=== PATIENT | male | born 1975 | race Caucasian/White ===

== ENCOUNTER 2018-09-03 16:43 | Observation (INO) | payer BC ==
[2018-09-03] MEDS ORDERED: SODIUM CHLORIDE 0.9% 1,000 ML IV STA (18:21)
[2018-09-03] MEDS ORDERED: ACETAMINOPHEN TAB 325 MG TAB PO STA (18:22)
[2018-09-03] MEDS ORDERED: IBUPROFEN 800 MG TAB PO STA (18:22)
--- NOTE | 2018-09-03 18:42 | ED ---
General Adult HPI - General Chief complaint: Abdominal Pain Stated complaint: Rash, all over body pain Time Seen by Provider: 09/03/18 18:07 Source: patient, RN notes reviewed, old records reviewed Mode of arrival: ambulatory Limitations: no limitations - History of Present Illness Initial comments: 42-year-old male patient past medical history cholecystectomy, fully vaccinated presents with multiple complaints. 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 Patient reports that afterwards she developed a red rash on his hands. Patient reports that he has also developed symptoms including bilateral flank pain, generalized myalgias. Patient also complains of a waxing and waning productive cough. Patient states that he has had nausea without emesis. Denies any diarrhea. Patient denies any chest pain, reports some shortness of breath with coughing but no shortness of breath at rest. Denies any headache, altered mental status, changes in vision. Denies any neck stiffness. Denies any dysuria. Patient does report that he was previously havi ng some mild ureteral discharge which resolved, patient was reportedly tested for sexually transmitted infections by his primary care provider she states was negative. Patient complains of fevers and chills. Systemic: Pt denies fatigue, fever/chills. Pt denies weakness, night sweats, weight loss. Neuro: Pt denies headache, visual disturbances, syncope or pre-syncope. HEENT: Pt denies ocular discharge or irritation, otalgia, rhinorrhea, pharyngitis or notable lymphadenopathy. Cardiopulmonary: Pt denies chest pain, SOB, heart palpitations, dyspnea on exertion. Abdominal/GI: Pt denies abdominal pain, n/v/d. : Pt denies dysuria, burning w/ urination, frequency/urgency. Denies new onset urinary or bowel incontinence. MSK: Pt denies myalgia, loss of strength or function in extremities. Neuro: Pt denies new onset weakness, paresthesias. - Related Data Allergies Allergy/AdvReac Type Severity Reaction Status Date / Time No Known Allergies Allergy Verified 09/03/18 17:22 Review of Systems ROS Statement: Those systems with pertinent positive or pertinent negative responses have been documented in the HPI. ROS Other: All systems not noted in ROS Statement are negative. Past Medical History Past Medical History: No Reported History History of Any Multi-Drug Resistant Organisms: None Reported Past Surgical History: Cholecystectomy Additional Past Surgical History / Comment(s): left leg surgery Past Psychological History: No Psychological Hx Reported Smoking Status: Current every day smoker Past Alcohol Use History: Occasional Past Drug Use History: None Reported General Exam - General Exam Comments Initial Comments: Constitutional: NAD, AOX3, Pt has pleasant affect. HEENT: NC/AT, trachea midline, neck supple, no lymphadenopathy. Posterior pharynx non erythematous, without exudates. External ears appear normal, without discharge. Mucous membranes moist. Eyes PERRLA, EOM intact. There is no scleral icterus. No pallor noted. Cardiopulmonary: RRR, no murmurs, rubs or gallops, no JVD noted. Lungs CTAB in anterior and posterior sun. No peripheral edema. Abdominal exam: Abdomen soft and non-distended. Abdomen mildly tender to palpation in periumbilical region. No other areas of significant abdominal tenderness. Bowel sounds active in LLQ. No hepatosplenomegaly. No ecchymosis Neuro: CN II-XII intact. No nuchal rigidity. No raccon eyes, no murphy sign, no hemotympanum. No cervical spinal tenderness. MSK: No posterior calf tenderness bilaterally, homans sign negative bilaterally. Posterior tibialis and radial pulse +2 bilaterally. Sensation intact in upper and lower extremities. Full active ROM in upper and lower extremities, 5/5 st regnth. Derm: Maculopapular erythematous rash on palms bilaterally which extents into volar aspect of wrist bilaterally. Limitations: no limitations Course Vital Signs 09/03/18 09/03/18 17:18 19:56 Temperature 102.3 F H 100.0 F H Pulse Rate 106 H 82 Respiratory 18 16 Rate Blood Pressure 125/79 121/62 O2 Sat by Pulse 97 100 Oximetry Medical Decision Making - Medical Decision Making 42-year-old male patient past medical history cholecystectomy, fully vaccinated presents with multiple complaints. 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 Patient reports that afterwards she developed a red rash on his hands. Patient reports that he has also developed symptoms including bilateral flank pain, generalized myalgias. Patient also complains of a waxing and waning productive cough. Patient states that he has had nausea without emesis. Denies any diarrhea. Patient denies any chest pain, reports some shortness of breath with coughing but no shortness of breath at rest. Denies any headache, altered mental status, changes in vision. Denies any neck stiffness. Denies any dysuria. Patient does report that he was previously hav ing some mild ureteral discharge which resolved, patient was reportedly tested for sexually transmitted infections by his primary care provider she states was negative. Patient complains of fevers and chills. Patient also displayed fever of 102.3. Patient administered antipyretic. RPT vs displayed improved fever, HR wnl. Physical exam displayed: Maculopapular erythematous rash on palms bilaterally which extents into volar aspect of wrist bilaterally. Normal neurologic exam, no other acute pathology. Investigations revealed non- impressive CBC, CMP, UA. Influenza negative. CT abdomen and pelvis, chest x- ray did not display acute pathology. Patient administered 2.4 million units of penicillin G for possible secondary syphilis. Patient will be admitted for continued evaluation. Case discussed and patient seen by Dr. De La Cruz. - Lab Data Result diagrams: 09/03/18 18:35 09/03/18 18:35 Lab Results 09/03/18 09/03/18 09/03/18 Range/Units 18:35 18:35 18:35 WBC 8.8 (3.8-10.6) k/uL RBC 5.43 (4.30-5.90) m/uL Hgb 17.1 (13.0-17.5) gm/dL Hct 51.2 (39.0-53.0) % MCV 94.2 (80.0-100.0) fL MCH 31.5 (25.0-35.0) pg MCHC 33.5 (31.0-37.0) g/dL RDW 13.0 (11.5-15.5) % Plt Count 174 (150-450) k/uL Neutrophils % 82 % Lymphocytes % 9 % Monocytes % 5 % Eosinophils % 0 % Basophils % 1 % Neutrophils # 7.2 (1.3-7.7) k/uL Lymphocytes # 0.8 L (1.0-4.8) k/uL Monocytes # 0.5 (0-1.0) k/uL Eosinophils # 0.0 (0-0.7) k/uL Basophils # 0.1 (0-0.2) k/uL Sodium 137 (137-145) mmol/L Potassium 3.7 (3.5-5.1) mmol/L Chloride 99 (98-107) mmol/L Carbon Dioxide 26 (22-30) mmol/L Anion Gap 12 mmol/L BUN 10 (9-20) mg/dL Creatinine 1.10 (0.66-1.25) mg/dL Est GFR (CKD-EPI)AfAm >90 (>60 ml/min/1.73 sqM) Est GFR (CKD-EPI)NonAf 82 (>60 ml/min/1.73 sqM) Glucose 97 (74-99) mg/dL Plasma Lactic Acid Jem 1.1 (0.7-2.0) mmol/L Calcium 9.2 (8.4-10.2) mg/dL Total Bilirubin 0.6 (0.2-1.3) mg/dL AST 25 (17-59) U/L ALT 11 L (21-72) U/L Alkaline Phosphatase 94 (38-126) U/L Total Protein 7.7 (6.3-8.2) g/dL Albumin 4.5 (3.5-5.0) g/dL Lipase 107 (23-300) U/L Urine Color Urine Appearance (Clear) Urine pH (5.0-8.0) Ur Specific Benedict (1.001-1.035) Urine Protein (Negative) Urine Glucose (UA) (Negative) Urine Ketones (Negative) Urine Blood (Negative) Urine Nitrite (Negative) Urine Bilirubin (Negative) Urine Urobilinogen (<2.0) mg/dL Ur Leukocyte Esterase (Negative) Urine RBC (0-5) /hpf Urine WBC (0-5) /hpf Ur Squamous Epith Cells (0-4) /hpf Hyaline Casts (0-2) /lpf Urine Mucus (None) /hpf Influenza Type A RNA (Not Detectd) Influenza Type B (PCR) (Not Detectd) 09/03/18 09/03/18 Range/Units 18:35 Unknown WBC (3.8-10.6) k/uL RBC (4.30-5.90) m/uL Hgb (13.0-17.5) gm/dL Hct (39.0-53.0) % MCV (80.0-100.0) fL MCH (25.0-35.0) pg MCHC (31.0-37.0) g/dL RDW (11.5-15.5) % Plt Count (150-450) k/uL Neutrophils % % Lymphocytes % % Monocytes % % Eosinophils % % Basophils % % Neutrophils # (1.3-7.7) k/uL Lymphocytes # (1.0-4.8) k/uL Monocytes # (0-1.0) k/uL Eosinophils # (0-0.7) k/uL Basophils # (0-0.2) k/uL Sodium (137-145) mmol/L Potassium (3.5-5.1) mmol/L Chloride (98-107) mmol/L Carbon Dioxide (22-30) mmol/L Anion Gap mmol/L BUN (9-20) mg/dL Creatinine (0.66-1.25) mg/dL Est GFR (CKD-EPI)AfAm (>60 ml/min/1.73 sqM) Est GFR (CKD-EPI)NonAf (>60 ml/min/1.73 sqM) Glucose (74-99) mg/dL Plasma Lactic Acid Jem (0.7-2.0) mmol/L Calcium (8.4-10.2) mg/dL Total Bilirubin (0.2-1.3) mg/dL AST (17-59) U/L ALT (21-72) U/L Alkaline Phosphatase (38-126) U/L Total Protein (6.3-8.2) g/dL Albumin (3.5-5.0) g/dL Lipase (23-300) U/L Urine Color Yellow Urine Appearance Cloudy (Clear) Urine pH 5.5 (5.0-8.0) Ur Specific Benedict 1.033 (1.001-1.035) Urine Protein 2+ H (Negative) Urine Glucose (UA) Negative (Negative) Urine Ketones Trace H (Negative) Urine Blood Trace H (Negative) Urine Nitrite Negative (Negative) Urine Bilirubin Negative (Negative) Urine Urobilinogen 2.0 (<2.0) mg/dL Ur Leukocyte Esterase Negative (Negative) Urine RBC <1 (0-5) /hpf Urine WBC 4 (0-5) /hpf Ur Squamous Epith Cells 1 (0-4) /hpf Hyaline Casts 6 H (0-2) /lpf Urine Mucus Many H (None) /hpf Influenza Type A RNA Not Detected (Not Detectd) Influenza Type B (PCR) Not Detected (Not Detectd) Disposition Clinical Impression: Rash Disposition: ADMITTED IP TO THIS HOSP Condition: Serious Is patient prescribed a controlled substance at d/c from ED?: No Referrals: Daisy Avalos MD [Primary Care Provider] - 1-2 days
--- NOTE | 2018-09-03 19:30 | CT ---
EXAMINATION TYPE: CT abdomen pelvis w con DATE OF EXAM: 09/03/2018 COMPARISON: 04/15/2010 HISTORY: body aches, abdominal pain, fever, rashes CT DLP: 878.9 mGycm Automated exposure control for dose reduction was used. TECHNIQUE: Helical acquisition of images was performed from the lung bases through the pelvis. CONTRAST: Performed without Oral Contrast and with IV Contrast, patient injected with 100 mL of Isovue 300. FINDINGS: There is some linear density at the lung bases consistent with atelectasis. Heart size is normal. The re is no pericardial effusion. There is no pleural effusion. There are clips from cholecystectomy. Li jak spleen pancreas appear normal. Bile ducts are not dilated. There is no adrenal mass. Stomach appears normal. Kidneys show satisfactory contrast opacification. T here is no hydronephrosis. There is no retroperitoneal adenopathy. Bladder distends smoothly. There is no inguinal hernia. There are bilateral inguinal lymph nodes that measure up to 2 cm. There is no mesenteric edema. There is no ascites or free air. There is no sign of a bowel obstructio n. Appendix appears normal. Lumbar vertebra have normal alignment. Disc spaces are fairly normal. Bony pelvis is intact. There is no evidence of bony destructive process. IMPRESSION: NEGATIVE CT SCAN ABDOMEN AND PELVIS. MILD ATELECTASIS AT THE POSTERIOR LUNG BASES IS INCREASED COMPAR ED TO OLD EXAM.
--- NOTE | 2018-09-03 19:31 | XR ---
EXAMINATION TYPE: XR chest 2V DATE OF EXAM: 09/03/2018 COMPARISON: NONE HISTORY: Weakness TECHNIQUE: Frontal and lateral views of the chest are obtained. FINDINGS: Heart and mediastinum are normal. Lungs are clear. Diaphragm is normal. Bony thorax appear s normal. IMPRESSION: Normal chest.
[2018-09-03 19:47] LABS: Basophils # (A) 0.1 k/uL (0-0.2); Basophils % (A) 1 %; Eosinophils % (A) 0 %; HCT 51.2 % (39.0-53.0); HGB 17.1 gm/dL (13.0-17.5); Lymphocytes # (A) 0.8 k/uL (1.0-4.8); Lymphocytes % (A) 9 %; MCH 31.5 pg (25.0-35.0); MCHC 33.5 g/dL (31.0-37.0); MCV 94.2 fL (80.0-100.0); Mean Platelet Volume 9.1; Monocytes # (A) 0.5 k/uL (0-1.0); Monocytes % (A) 5 %; Neutrophils # (A) 7.2 k/uL (1.3-7.7); Neutrophils % (A) 82 %; Platelet Count 174 k/uL (150-450); RBC 5.43 m/uL (4.30-5.90); WBC 8.8 k/uL (3.8-10.6)
[2018-09-03 19:55] LABS: Appearance,Urine Cloudy (Clear); Bilirubin,Urine Negative (Negative); Blood,Urine Trace (Negative); Color,Urine Yellow; Glucose,Urine (UA) Negative (Negative); Hyaline Casts,Urine 6 /lpf (0-2); Ketones,Urine Trace (Negative); Leukocyte Esterase,Urine Negative (Negative); Mucus,Urine Many /hpf; Nitrite,Urine Negative (Negative); PH, Urine 5.5 (5.0-8.0); Protein,Urine 2+ (Negative); RBC,Urine <1 /hpf (0-5); Specific Gravity,Urine 1.033 (1.001-1.035); Squamous Epithelial Cell,Urine 1 /hpf (0-4); WBC,Urine 4 /hpf (0-5)
[2018-09-03 19:56] LABS: ALT 11 U/L (21-72); AST 25 U/L (17-59); African American GFR (CKD) >90 (>60 ml/min/1.73 sqM); Albumin 4.5 g/dL (3.5-5.0); Alkaline Phosphatase 94 U/L (38-126); Anion Gap 12 mmol/L; Blood Urea Nitrogen 10 mg/dL (9-20); Calcium 9.2 mg/dL (8.4-10.2); Carbon Dioxide 26 mmol/L (22-30); Chloride 99 mmol/L (98-107); Glucose 97 mg/dL (74-99); Lipase 107 U/L (23-300); Potassium 3.7 mmol/L (3.5-5.1); Sodium 137 mmol/L (137-145); Total Bilirubin 0.6 mg/dL (0.2-1.3); Total Protein 7.7 g/dL (6.3-8.2)
[2018-09-03] MEDS ORDERED: PENICILLIN G BENZATHINE 1,200,000 UNIT/2 ML SYRINGE IM STA (21:26)
[2018-09-03] MEDS ORDERED: NALOXONE 0.4 MG/ML 1 ML VIAL IV PRN (21:27)
[2018-09-03] MEDS ORDERED: IBUPROFEN 400 MG TAB PO PRN (21:27)
[2018-09-03] MEDS ORDERED: cefTRIAXone IN SWFI 1,000 MG/10 ML SYRINGE IVP STA (22:31)
[2018-09-03] MEDS ORDERED: VANCOMYCIN IV PER PHARMACY 1 EACH MISC MISCELLANE PRN (22:31)
[2018-09-03] MEDS ORDERED: VANCOMYCIN 1,500 MG in SODIUM CHLORIDE 0.9% 250 ML IVPB STA (22:33)
[2018-09-03] MEDS: MORPHINE SULFATE 4 MG/ML SYRINGE IV PRN (22:46)
[2018-09-03] MEDS ORDERED: NICOTINE 21MG/24HR PATCH TRANSDERM STA (23:05)
[2018-09-03] MEDS ORDERED: ONDANSETRON 4 MG/2 ML VIAL IVP PRN ×2 (23:59)
[2018-09-04] MEDS: KETOROLAC 30 MG/ML 1 ML VIAL IM PRN ×3 (00:10→20:24)
[2018-09-04] MEDS: SODIUM CHLORIDE 0.9% 1,000 ML IV SCH ×3 (00:33→21:35)
[2018-09-04] MEDS: ACETAMINOPHEN TAB 325 MG TAB PO PRN (09:46)
[2018-09-04] MEDS: FAMOTIDINE 20 MG/2 ML VIAL IV SCH ×2 (09:49→21:34)
[2018-09-04] MEDS ORDERED: VANCOMYCIN 1,500 MG in SODIUM CHLORIDE 0.9% 250 ML IVPB SCH (12:00)
--- NOTE | 2018-09-04 15:52 | P.HPIM ---
History of Present Illness 48-year-old pleasant male came in with complaints of her diffusion past involving both hands and back and torso. Patient had some bilateral flank pain and generalized myalgias as well. Patient stays this is secondary to touching some stye of like contact dermatitis from the equipment he uses at his work. ER physician suspected that that patient may have secondary syphilis because of which patient was admitted to the hospital patient has one sexual partner for years. Patient denied any other sexual and late transmitted disease except for Gardenella which was diagnosed in the urine test. Patient denied any urethral discharge any penile lesions or swelling in the groin area. Infectious disease was consulted. Discussed with IV physician and he is recommending RPR testing for syphilis along with HIV testing. If these are negative patient the will be treated for contact dermatitis and ALLERGIES. Review of Systems REVIEW OF SYSTEMS: CONSTITUTIONAL: No fever, no malaise, no fatigue. HEENT: No recent visual problems or hearing problems. Denied any sore throat. CARDIOVASCULAR: No chest pain, orthopnea, PND, no palpitations, no syncope. PULMONARY: No shortness of breath, no cough, no hemoptysis. GASTROINTESTINAL: No diarrhea, no nausea, no vomiting, no abdominal pain. NEUROLOGICAL: No headaches, no weakness, no numbness. HEMATOLOGICAL: Denies any bleeding or petechiae. GENITOURINARY: Denies any burning micturition, frequency, or urgency. MUSCULOSKELETAL/RHEUMATOLOGICAL: Denies any joint pain, swelling, or any muscle pain. ENDOCRINE: Denies any polyuria or polydipsia. The rest of the 14-point review of systems is negative. Past Medical History Past Medical History: No Reported History History of Any Multi-Drug Resistant Organisms: None Reported Past Surgical History: Cholecystectomy Additional Past Surgical History / Comment(s): left leg surgery Past Psychological History: No Psychological Hx Reported Smoking Status: Current every day smoker Past Alcohol Use History: Occasional Past Drug Use History: None Reported Medications and Allergies Home Medications Medication Instructions Recorded Confirmed Type No Known Home Medications 09/03/18 09/03/18 History Allergies Allergy/AdvReac Type Severity Reaction Status Date / Time No Known Allergies Allergy Verified 09/03/18 23:11 Physical Exam Vitals: Vital Signs Temp Pulse Pulse Resp BP BP Pulse Ox 09/04/18 13:56 96.7 F L 74 16 118/75 98 09/04/18 08:55 81 16 09/04/18 07:00 99.1 F 81 16 122/68 100 09/04/18 00:37 98.3 F 65 16 130/67 100 09/03/18 23:21 97.9 F 72 16 126/72 98 09/03/18 21:43 98.5 F 72 16 125/70 97 09/03/18 19:56 100.0 F H 82 16 121/62 100 09/03/18 17:18 102.3 F H 106 H 18 125/79 97 Intake and Output 09/04/18 09/04/18 09/04/18 06:59 14:59 22:59 Intake Total 1730 Balance 1730 Intake: Intake, IV Titration 1050 Amount Sodium Chloride 0.9% 1, 800 000 ml @ 130 mls/hr IV . Q7H42M ELDA Rx#:[id number] Vancomycin 1,500 mg In 250 Sodium Chloride 0.9% 250 ml @ 125 mls/hr IVPB Q12H ELDA Rx#:[id number] Oral 680 Other: # Voids 3 PHYSICAL EXAMINATION: GENERAL: The patient is alert and oriented x3, not in any acute distress. Well developed, well nourished. HEENT: Pupils are round and equally reacting to light. EOMI. No scleral icterus. No conjunctival pallor. Normocephalic, atraumatic. No pharyngeal erythema. No thyromegaly. CARDIOVASCULAR: S1 and S2 present. No murmurs, rubs, or gallops. PULMONARY: Chest is clear to auscultation, no wheezing or crackles. ABDOMEN: Soft, nontender, nondistended, normoactive bowel sounds. No palpable organomegaly. MUSCULOSKELETAL: No joint swelling or deformity. EXTREMITIES: No cyanosis, clubbing, or pedal edema. NEUROLOGICAL: Gross neurological examination did not reveal any focal deficits. SKIN: And has a diffuse rash as mentioned above predominantly in the hands patient has significant redness and maculopapular rash patient doesn't have any rash below his hip area no rash in the foot Results CBC & Chem 7: 09/03/18 18:35 09/03/18 18:35 Labs: Abnormal Lab Results - Last 24 Hours (Table) 09/03/18 09/03/18 09/03/18 Range/Units 18:35 18:35 18:35 Lymphocytes # 0.8 L (1.0-4.8) k/uL ALT 11 L (21-72) U/L Urine Protein 2+ H (Negative) Urine Ketones Trace H (Negative) Urine Blood Trace H (Negative) Hyaline Casts 6 H (0-2) /lpf Urine Mucus Many H (None) /hpf Microbiology - Last 24 Hours (Table) 09/03/18 22:10 Urine Culture - Preliminary Urine,Voided Thrombosis Risk Factor Assmnt - Choose All That Apply Each Factor Represents 1 point: Age 41-60 years Thrombosis Risk Factor Assessment Total Risk Factor Score: 1 Thrombosis Risk Factor Assessment Level: Low Risk Assessment and Plan Plan: Diffuse rash: We'll rule out secondary syphilis HIV testing will be obtained and the possibility of contact dermatitis cannot be ruled out -Generalized myalgias can be due to above-mentioned reasons just a viral illness -Recent history of Gardenella: Patient received antibiotics for that -Nicotine abuse: Counseling was provided
[2018-09-04] MEDS: MORPHINE SULFATE 4 MG/ML SYRINGE IV PRN (16:31)
--- NOTE | 2018-09-04 23:41 | P.CONS ---
History of Present Illness - Reason for Consult Consult date: 09/04/18 Fever and rash Requesting physician: Yazmin Muñoz - Chief Complaint Fever and rash 3 days - History of Present Illness Patient is a 43-year-old male presenting to the ER at [facility] with chief complaints of generalized body aches, rash that initially started on his hands with more of a burning sensation to it intensity about 3/10 subsequently the rash has involved his trunk as well but not lower extremity or the soles of his feeds currently with no blister or vesicle formation, the patient did have a fever of 102F on presentation to the ER the patient did have extensive workup including a CT of abdominal pelvis that was negative chest x-ray was negative influenza serology was negative patient to give a history of STD with urine positive for Trichomonas about 2 weeks ago for the patient has been treated by his primary care physician and repeat urine test was negative per patient however the patient did not have any blood test done the patient had denies having any genital ulcers or urethral drainage at this point patient did receive a dose of benzathine penicillin in the ER and subsequently has been admitted hospital for further management of his rash and fever, patient to give a history of exposure to some chemicals at work before the rash started Review of Systems Positive points has been managed HPI rest of the systems are negative Past Medical History Past Medical History: No Reported History History of Any Multi-Drug Resistant Organisms: None Reported Past Surgical History: Cholecystectomy Additional Past Surgical History / Comment(s): left leg surgery Past Psychological History: No Psychological Hx Reported Smoking Status: Current every day smoker Past Alcohol Use History: Occasional Past Drug Use History: None Reported Medications and Allergies Home Medications Medication Instructions Recorded Confirmed Type No Known Home Medications 09/03/18 09/03/18 History Allergies Allergy/AdvReac Type Severity Reaction Status Date / Time No Known Allergies Allergy Verified 09/03/18 23:11 Physical Exam Vitals: Vital Signs Temp Pulse Resp BP Pulse Ox 09/04/18 16:35 16 09/04/18 13:56 96.7 F L 74 16 118/75 98 09/04/18 08:55 81 16 09/04/18 07:00 99.1 F 81 16 122/68 100 09/04/18 00:37 98.3 F 65 16 130/67 100 Intake and Output 09/04/18 09/04/18 09/05/18 14:59 22:59 06:59 Intake Total 1730 Balance 1730 Intake: Intake, IV Titration 1050 Amount Sodium Chloride 0.9% 1, 800 000 ml @ 130 mls/hr IV . Q7H42M ELDA Rx#:[id number] Vancomycin 1,500 mg In 250 Sodium Chloride 0.9% 250 ml @ 125 mls/hr IVPB Q12H ELDA Rx#:[id number] Oral 680 Other: # Voids 3 GENERAL DESCRIPTION: Middle-aged male lying in bed, no distress. No tachypnea or accessory muscle of respiration use. HEENT: Shows Pallor , no scleral icterus. Oral mucous membrane is dry. No pharyngeal erythema or thrush NECK: Trachea central, no thyromegaly. LUNGS: Unlabored breathing. Clear to auscultation anteriorly. No wheeze or crackle. HEART: S1, S2, regular rate and rhythm. No loud murmur ABDOMEN: Soft, no tenderness , guarding or rigidity, no organomegaly EXTREMITIES: No edema of feet. SKIN: Patient had did have maculopapular rash predominantly on the palms of his hand and the trunk no rash was noticed on the feet or soles, no masses palpable. NEUROLOGICAL: The patient is awake, alert, oriented x3, mood and affect normal Results CBC & Chem 7: 09/03/18 18:35 09/03/18 18:35 Labs: Microbiology - Last 24 Hours (Table) 09/03/18 22:10 Urine Culture - Preliminary Urine,Voided Assessment and Plan Assessment: 1-patient presenting to the hospital denies body aches patient did have a fever and a rash predominantly on the palms of his hands and trunk with no evidence of any mucous membrane involvement the patient to give a history of STD 2 weeks ago with Trichomonas however he was not tested for syphilis at that time and the patient denies having any genital ulcers or urethral drainage at this point, more likely pointing towards possible infectious etiology for his rash has attributed very unlikely to have fever and generalized body aches with a contact dermatitis Plan: 1-we will obtain RPR, FT-ABS to confirm the diagnoses of possible syphilis 2-also obtain HIV test 3-we will also check CMV and EBV serology 4-already received 1 dose of benzathine penicillin which should be enough for secondary syphilis we will follow up on clinical condition and cultures to further adjust medication if needed Thank you for this consultation will follow this patient along with you Time with Patient: Greater than 30
[2018-09-05] MEDS ORDERED: NICOTINE 21MG/24HR PATCH TRANSDERM STA (00:03)
[2018-09-05] MEDS ORDERED: KETOROLAC 30 MG/ML 1 ML VIAL IVP PRN (00:03)
[2018-09-05] MEDS: ACETAMINOPHEN TAB 325 MG TAB PO PRN (01:53)
[2018-09-05] MEDS: MORPHINE SULFATE 4 MG/ML SYRINGE IV PRN ×2 (01:54→09:51)
[2018-09-05] MEDS: SODIUM CHLORIDE 0.9% 1,000 ML IV SCH (05:49)
[2018-09-05 07:44] LABS: African American GFR (CKD) >90 (>60 ml/min/1.73 sqM)
[2018-09-05 08:41] VITALS: BP 114/68; PULSE 73; RESP 16; TEMP 97.8
[2018-09-05] MEDS ORDERED: NICOTINE 21MG/24HR PATCH TRANSDERM SCH (09:00)
[2018-09-05] MEDS: FAMOTIDINE 20 MG/2 ML VIAL IV SCH (09:47)
--- NOTE | 2018-09-05 12:50 | P.DS ---
Providers Date of admission: 09/03/18 22:18 Attending physician: Gus Oliveros Consults: 09/03/18 21:27 Consult Physician Stat Consulting Provider: Helen Blackmon Consult Reason/Comments: possible secondary syphillis, rash Do you want consulting provider notified?: Yes Primary care physician: Robbie Quintanilla [facility] Course: 48-year-old pleasant male came in with complaints of her diffusion past involvin g both hands and back and torso. Patient had some bilateral flank pain and generalized myalgias as well. Patient stays this is secondary to touching some stye of like contact dermatitis from the equipment he uses at his work. ER physician suspected that that patient may have secondary syphilis because of which patient was admitted to the hospital patient has one sexual partner for years. Patient denied any other sexual and late transmitted disease except for Gardenella which was diagnosed in the urine test. Patient denied any urethral discharge any penile lesions or swelling in the groin area. Infectious disease was consulted. Discussed with IV physician and he is recommending RPR testing for syphilis along with HIV testing. If these are negative patient the will be treated for contact dermatitis and ALLERGIES. 09/05/2018 Patient the rash is significantly better today. Patient will be discharged on Medrol Dosepak and cetirizine. Patient's 2 minimal pallidum test was negative and patient the HIV and RPR are pending and I do not expect them to be positive. Patient will follow-up with the infectious disease about as an outpatient who can review these results as an outpatient. Possibility of secondary syphilis is extremely low. PHYSICAL EXAMINATION: GENERAL: The patient is alert and oriented x3, not in any acute distress. Well developed, well nourished. HEENT: Pupils are round and equally reacting to light. EOMI. No scleral icterus. No conjunctival pallor. Normocephalic, atraumatic. No pharyngeal erythema. No thyromegaly. CARDIOVASCULAR: S1 and S2 present. No murmurs, rubs, or gallops. PULMONARY: Chest is clear to auscultation, no wheezing or crackles. ABDOMEN: Soft, nontender, nondistended, normoactive bowel sounds. No palpable organomegaly. MUSCULOSKELETAL: No joint swelling or deformity. EXTREMITIES: No cyanosis, clubbing, or pedal edema. NEUROLOGICAL: Gross neurological examination did not reveal any focal deficits. SKIN: And has a diffuse rash as mentioned above predominantly in the hands patient has significant redness and maculopapular rash patient doesn't have any rash below his hip area no rash in the foot Assessment and Plan Plan: Diffuse rash: We'll rule out secondary syphilis HIV , possibility of contact dermatitis . -Generalized myalgias can be due to above-mentioned reasons just a viral illness -Recent history of Gardenella: Patient received antibiotics for that -Nicotine abuse: Counseling was provided Patient Condition at Discharge: Serious Plan - Discharge Summary New Discharge Prescriptions: New methylPREDNISolone Dose Pack [Medrol Dose Pack] 4 mg PO DIRECTED #21 package Loratadine [Claritin] 10 mg PO DAILY #30 tab Discharge Medication List Loratadine [Claritin] 10 mg PO DAILY #30 tab 09/05/18 [Rx] methylPREDNISolone Dose Pack [Medrol Dose Pack] 4 mg PO DIRECTED #21 package 09/05/18 [Rx] Follow up Appointment(s)/Referral(s): Daisy Avalos MD [Primary Care Provider] - 3 Days Helen Blackmon MD [STAFF PHYSICIAN] - 1 Week Discharge Disposition: HOME SELF-CARE
--- NOTE | 2018-09-05 16:57 | PN ---
PROGRESS NOTE DATE OF SERVICE: 09/05/2018. REASON FOR FOLLOWUP: Fever and rash. INTERVAL HISTORY: The patient spiked another fever last night of 103.2 degrees Fahrenheit. The patient is afebrile since then. The patient's rash to the hands has improved. However, the rash has now progressed to his legs, not involving the soles of his feet. The patient denies having any headache or URI symptoms. No chest pain or shortness of breath or cough. No abdominal pain, no diarrhea. PHYSICAL EXAMINATION: Blood pressure 114/60 with a pulse of 73, temperature 97.8. He is 98% on room air. General description is a middle-aged male lying in bed in no distress. RESPIRATORY SYSTEM: Unlabored breathing. Clear to auscultation anteriorly. HEART: S1, S2. Regular rate and rhythm. ABDOMEN: Soft, no tenderness. No organomegaly. EXTREMITIES: No edema of the feet. LABS: Serological workup is currently pending including HIV testing and confirmation on his syphilis test. DIAGNOSTIC IMPRESSION AND PLAN: Patient admitted to the hospital with a fever and a rash with concern for possible infectious etiology with question of possibly viral versus STI. Workup continues to be pending. The patient did receive one dose of penicillin which should be enough for any secondary syphilis. Blood culture from admission is still pending. The patient has now been discharged by the admitting physician with instructions to follow up with us in the outpatient setting. Hopefully by that time, the workup will be completed. We will also recommend a short course of oral doxycycline in the outpatient setting. The patient advised if worsening fever or rash he needs to call us or come back to the ER. MMNAHUM / MARIBELLN: [id number] /
[2018-09-06 09:40] LABS: Rheumatoid Factor 9 IU/mL (0-15)
[2018-09-06 10:13] LABS: EBV-EA (IgG) <0.2 AI; EBV-EBNA(IgG) >8.0 AI; EBV-VCA (IgG) >8.0 AI
[2018-09-06 10:15] LABS: Hepatitis A Ab, Total Non-Reactive (Non-Reactive); Hepatitis A Antibody IgM Non-Reactive (Non-Reactive); Hepatitis C IgG Antibody Non-Reactive (Non-Reactive)
[2018-09-06 10:24] LABS: HIV 1 AB Non-Reactive (Non-Reactive); HIV AB P24 Non-Reactive (Non-Reactive); HIV P24 AG Non-Reactive (Non-Reactive)
== END 2018-09-05 16:37 | disposition home or self-care (01) ==
LOC: EC 16:43 → 4SSUR 22:18
PROVIDERS: ADMIT Hospitalist; ATTEND Hospitalist
DX: R21 Rash and other nonspecific skin eruption (principal); R10.9 Unspecified abdominal pain; M79.10 Myalgia, unspecified site; R50.9 Fever, unspecified; R05 Cough; R11.0 Nausea; L53.9 Erythematous condition, unspecified; J98.11 Atelectasis; F17.200 Nicotine dependence, unspecified, uncomplicated; Z86.19 Personal history of other infectious and parasitic diseases; Z90.49 Acquired absence of other specified parts of digestive tract; Z77.018 Contact with and (suspected) exposure to other hazardous metals; Y99.0 Civilian activity done for income or pay
CPT/HCPCS: 96376 ×2; 96361 ×2; 96366 ×2; 96372 ×2; 96375 ×3; 96365; 99285; 36415; 86778; 86803; 86709; 86777; 86665 ×2; 80053; 86663; 82565; 83605; 83690; 85025; 87340; 86431; 86780 ×3; 81001; 87040 ×2; 86664; 86644; 86645; 86708; 86038; 87086; 87502; 87390; 71046; 74177; G0378 ×3; S4990 ×2; J3370 ×2; J0561; J2270 ×3; J2405; J0696; J1885 ×2; Q9967

== ENCOUNTER 2019-11-13 12:41 | Emergency (ER) | payer BC ==
[2019-11-13 13:09] VITALS: RESP 18; TEMP 98.7
[2019-11-13 13:56] LABS: Color,Urine Yellow
[2019-11-13 13:57] LABS: Appearance,Urine Clear (Clear)
[2019-11-13 13:58] LABS: Bilirubin,Urine Negative (Negative); Blood,Urine Negative (Negative); Glucose,Urine (UA) Negative (Negative); Ketones,Urine Negative (Negative); Leukocyte Esterase,Urine Negative (Negative); Nitrite,Urine Negative (Negative); Protein,Urine Negative (Negative); Urobilinogen,Urine <2.0 mg/dL (<2.0)
--- NOTE | 2019-11-13 14:01 | ED ---
Male Urogenital HPI - General Chief complaint: Urogenital Stated complaint: Bladder issues/pain Time Seen by Provider: 11/13/19 13:15 Source: patient Mode of arrival: ambulatory - History of Present Illness Initial comments: Patient is a 44-year-old male presenting to the emergency Department with complaints of suprapubic discomfort that has been ongoing for the past month. Patient states he did see his PCP regarding this issue and was treated for possible STDs. Patient states those tests came back negative. Patient continues to have on and off pressure in his lower abdomen as well as some discomfort when he urinates. He is also having some itchiness in his groin area that he's been treating with antifungal medication. He states this has been improving. He denies any fever, chills, nausea, vomiting. He denies history of abdominal surgeries. He denies diarrhea. He denies any sores, swelling, redness of his genitals. He has no further complaints at this time. - Related Data Previous Rx's Medication Instructions Recorded Doxycycline Hyclate 100 mg PO BID #20 tab 09/05/18 Loratadine [Claritin] 10 mg PO DAILY #30 tab 09/05/18 methylPREDNISolone Dose Pack 4 mg PO DIRECTED #21 package 09/05/18 [Medrol Dose Pack] Allergies Allergy/AdvReac Type Severity Reaction Status Date / Time No Known Allergies Allergy Verified 11/13/19 13:07 Review of Systems ROS Statement: Those systems with pertinent positive or pertinent negative responses have been documented in the HPI. ROS Other: All systems not noted in ROS Statement are negative. Past Medical History Past Medical History: No Reported History History of Any Multi-Drug Resistant Organisms: None Reported Past Surgical History: Cholecystectomy Additional Past Surgical History / Comment(s): left leg surgery Past Psychological History: No Psychological Hx Reported Smoking Status: Current every day smoker Past Alcohol Use History: Occasional Past Drug Use History: None Reported General Exam - General Exam Comments Initial Comments: GENERAL: Patient is well-developed and well-nourished. Patient is nontoxic and in no acute distress. HEAD: Atraumatic, normocephalic. EYES: Pupils equal round and reactive to light, extraocular movements intact, sclera anicteric, conjunctiva are normal. Eyelids were unremarkable. ENT: TMs normal, nares patent, oropharynx clear without exudates. Moist mucous membranes. NECK: Normal range of motion, supple without lymphadenopathy or JVD. LUNGS: Unlabored respirations. Breath sounds clear to auscultation bilaterally and equal. No wheezes rales or rhonchi. HEART: Regular rate and rhythm without murmurs, rubs or gallops. ABDOMEN: Soft, nontender, normoactive bowel sounds. No guarding, no rebound. No masses appreciated. : Normal external exam, no rashes, bumps, swelling, no pain to palpation. MUSCULOSKELETAL: Normal extremities with adequate strength and normal range of motion, no pitting or edema. No clubbing or cyanosis. NEUROLOGICAL: Normal speech, normal gait. PSYCH: Normal mood, normal affect. SKIN: Warm, Dry, normal turgor, no rashes or lesions noted. Course Vital Signs 11/13/19 13:07 Temperature 98.7 F Pulse Rate 86 Respiratory 18 Rate Blood Pressure 116/75 O2 Sat by Pulse 99 Oximetry Medical Decision Making - Medical Decision Making Patient is a 44-year-old male here for suprapubic pressure, dysuria intermittent for 1 month. He did have recent STD testing which was negative. Exam shows no abnormalities, no rashes or lesions, no swelling or pain with palpation. Urine is negative for signs of infection. I did retest for gonorrhea and chlamydia which is pending at this time. I discussed these findings with the patient and that he should follow up with urology. He states he does have a referral to urology from Dr. Avalos but has not called to make an appointment yet. He is stable for discharge. He will call urology tomorrow morning. Return parameters were discussed with the patient he verbalizes understanding. Case discussed with Dr. munson. - Lab Data Lab Results 11/13/19 Range/Units 13:36 Urine Color Yellow Urine Appearance Clear (Clear) Urine pH 6.0 (5.0-8.0) Ur Specific Davis 1.020 (1.001-1.035) Urine Protein Negative (Negative) Urine Glucose (UA) Negative (Negative) Urine Ketones Negative (Negative) Urine Blood Negative (Negative) Urine Nitrite Negative (Negative) Urine Bilirubin Negative (Negative) Urine Urobilinogen <2.0 (<2.0) mg/dL Ur Leukocyte Esterase Negative (Negative) Disposition Clinical Impression: Suprapubic pressure Disposition: HOME SELF-CARE Condition: Stable Instructions (If sedation given, give patient instructions): Normal Exam (ED) Additional Instructions: Please return to the Emergency Department if symptoms worsen or any other concerns. Follow-up with urology as discussed. Is patient prescribed a controlled substance at d/c from ED?: No Referrals: Daisy Avalos MD [Primary Care Provider] - 1-2 days Cole Thibodeaux MD [STAFF PHYSICIAN] - 1-2 days
[2019-11-13 15:00] VITALS: BP 118/81; PULSE 75
== END 2019-11-13 15:00 | disposition home or self-care (01) ==
LOC: EC 12:41
DX: R10.30 Lower abdominal pain, unspecified (principal); R30.0 Dysuria; F17.200 Nicotine dependence, unspecified, uncomplicated; Z90.49 Acquired absence of other specified parts of digestive tract
CPT/HCPCS: 81003; 87491; 87591; 99284